=== PATIENT | female | born 1950 | race Two or more races ===

== ENCOUNTER 2021-10-12 19:48 | Inpatient (IN) | payer MEDICARE, MEDICAID ==
[~2021-10-12] VITALS: Ht 165.1 cm; Wt 86.5 kg
[2021-10-12] MEDS ORDERED: LABETALOL HCL 200 MG TAB PO ONE (21:45)
[2021-10-12 21:54] LABS: Basophils # (auto) 0.1 10 ^3/uL (0-0.2); Basophils % (auto) 1.2 % (0.0-2.0); Eosinophils # (auto) 0.1 10 ^3/uL (0-0.8); Eosinophils % (auto) 2.3 % (0.0-7.0); Hematocrit 39.4 % (36.0-46.0); Hemoglobin 13.3 g/dL (12.2-16.2); Lymphocytes % (auto) 18.5 % (10.0-50.0); Mean Corpuscular Hemoglobin 31.8 pg (28.0-32.0); Mean Corpuscular Hgb Conc. 33.7 g/dL (32.0-36.0); Mean Corpuscular Volume 94.2 fL (80.0-100.0); Monocytes # (auto) 0.4 10 ^3/uL (0-1.3); Monocytes % (auto) 7.6 % (0.0-12.0); Neutrophils # (auto) 3.9 10 ^3/uL (1.6-8.6); Neutrophils % (auto) 70.4 % (37.0-80.0); Nucleated Red Blood Cells % 0.1 %; Red Blood Cells 4.19 10^6/uL (4.0-5.20); Red Cell Distribution Width 14.7 % (11.8-14.3); White Blood Cell 5.6 10^3/uL (4.4-10.8)
[2021-10-12 22:11] LABS: Albumin 3.7 g/dL (3.4-5.0); Calcium 9.2 mg/dL (8.5-10.1); Potassium 3.6 mmol/L (3.5-5.1)
[2021-10-12 22:15] LABS: BUN/Creatinine Ratio 26.7; Bilirubin, Total 0.4 mg/dL (0.2-1.0); Total Protein 7.8 g/dL (6.4-8.2)
[2021-10-13 00:41] LABS: Urine Bacteria MANY /hpf (None Seen); Urine Blood Negative /uL (Negative); Urine Mucus FEW (None Seen); Urine Specific Gravity 1.029 (1.001-1.035); Urine WBC 13 /hpf (0 - 5)
[2021-10-13] MEDS ORDERED: HEPARIN DRIP/D5W 100UNITS/ML 250 ML IV SCH (01:45)
[2021-10-13] MEDS ORDERED: HEPARIN SODIUM (PORCINE) 5000 UNITS/ML 1ML VIAL IV ONE (01:45)
[2021-10-13] MEDS ORDERED: CLOPIDOGREL 300 MG TAB PO ONE (01:45)
[2021-10-13] MEDS ORDERED: cefTRIAXone 1GM/50ML D5W 50 ML IV ONE (01:45)
[2021-10-13] MEDS ORDERED: NITROGLYCERIN 0.4 MG SL TAB SL PRN (02:30)
[2021-10-13] MEDS ORDERED: ONDANSETRON HCL 4 MG/2 ML VIAL IV PRN (02:30)
[2021-10-13] MEDS ORDERED: DEXTROSE (50%) 50ML SYRG IV PRN (02:30)
[2021-10-13] MEDS ORDERED: MORPHINE SULFATE INJ 2 MG/ml SYRG IV PRN (02:30)
[2021-10-13] MEDS ORDERED: ENOXAPARIN SOD 100 MG/1 ML SYRINGE SC ONE (02:45)
[2021-10-13 03:09] LABS: Magnesium 2.2 mg/dL (1.6-2.6)
[2021-10-13] MEDS: ACCU-CHEK COMFORT CURVE STRIP VI SCH ×3 (06:09→17:53)
[2021-10-13] MEDS: SODIUM CHLOR 0.9% PF (SALINE LOCK) 10ML VIAL/SYR IV SCH ×3 (06:10→21:55)
[2021-10-13] MEDS: InsuLIN REG 1unit/0.01ml Soln (100units/ml) SC SCH ×3 (06:10→17:53)
[2021-10-13] MEDS: cefTRIAXone 1GM/50ML D5W 50 ML IV SCH (09:41)
[2021-10-13] MEDS ORDERED: PANTOPRAZOLE 40 MG TAB PO SCH (10:00)
[2021-10-13] MEDS ORDERED: ASPirin 81 mg TAB PO SCH (10:00)
[2021-10-13] MEDS: METOPROLOL TARTRATE 25 MG TAB PO SCH ×2 (10:01→22:02)
[2021-10-13] MEDS ORDERED: AMIODARONE HCL 200 MG TAB PO ONE ×2 (10:15→13:15)
[2021-10-13 10:48] LABS: BUN/Creatinine Ratio 31.9; Calcium 8.8 mg/dL (8.5-10.1); Magnesium 2.3 mg/dL (1.6-2.6); Potassium 4.9 mmol/L (3.5-5.1)
[2021-10-13] MEDS: ATORVASTATIN 20 MG TAB PO SCH (22:00)
[2021-10-13] MEDS ORDERED: APIXABAN 5 MG TAB PO SCH (22:00)
[2021-10-13] MEDS: AMIODARONE HCL 200 MG TAB PO SCH (22:01)
[2021-10-13] MEDS: SACUBITRIL-VALSARTAN 24mg/26mg TAB PO SCH (22:01)
[2021-10-14] MEDS: ACCU-CHEK COMFORT CURVE STRIP VI SCH ×4 (00:01→18:20)
[2021-10-14] MEDS: InsuLIN REG 1unit/0.01ml Soln (100units/ml) SC SCH ×4 (00:10→18:00)
[2021-10-14] MEDS ORDERED: HYDROcodone-ACET 5/325MG TAB PO ONE (01:00)
[2021-10-14 05:00] VITALS: BP 121/64
[2021-10-14] MEDS: SODIUM CHLOR 0.9% PF (SALINE LOCK) 10ML VIAL/SYR IV SCH ×3 (06:06→21:51)
[2021-10-14] MEDS ORDERED: ATOR20TA50 PO (06:15)
[2021-10-14] MEDS ORDERED: SACU1TAB7 PO (06:15)
[2021-10-14] MEDS ORDERED: POTA10TA51 PO (06:15)
[2021-10-14] MEDS ORDERED: METO25TA5 PO (06:15)
[2021-10-14] MEDS ORDERED: APIX5TAB PO (06:15)
[2021-10-14] MEDS ORDERED: DIGO50SO2 PO (06:15)
[2021-10-14] MEDS ORDERED: CLOP75TA28 PO (06:15)
[2021-10-14] MEDS ORDERED: FURO1TAB33 PO (06:15)
[2021-10-14 07:10] LABS: Basophils # (auto) 0 10 ^3/uL (0-0.2); Basophils % (auto) 0.5 % (0.0-2.0); Eosinophils # (auto) 0.1 10 ^3/uL (0-0.8); Eosinophils % (auto) 3.3 % (0.0-7.0); Hematocrit 34.7 % (36.0-46.0); Hemoglobin 11.9 g/dL (12.2-16.2); Lymphocytes # (auto) 0.8 10 ^3/uL (0.4-5.4); Lymphocytes % (auto) 19.2 % (10.0-50.0); Mean Corpuscular Hemoglobin 32.1 pg (28.0-32.0); Mean Corpuscular Hgb Conc. 34.3 g/dL (32.0-36.0); Mean Corpuscular Volume 93.4 fL (80.0-100.0); Monocytes # (auto) 0.4 10 ^3/uL (0-1.3); Monocytes % (auto) 9.7 % (0.0-12.0); Neutrophils # (auto) 2.9 10 ^3/uL (1.6-8.6); Neutrophils % (auto) 67.3 % (37.0-80.0); Nucleated Red Blood Cells % 0.1 %; Red Blood Cells 3.72 10^6/uL (4.0-5.20); Red Cell Distribution Width 14.2 % (11.8-14.3); White Blood Cell 4.3 10^3/uL (4.4-10.8)
[2021-10-14 07:22] LABS: INR 1.06 (0.9-1.15)
[2021-10-14 07:30] LABS: Albumin 3.3 g/dL (3.4-5.0); Calcium 8.7 mg/dL (8.5-10.1); Magnesium 2.4 mg/dL (1.6-2.6); Potassium 3.9 mmol/L (3.5-5.1)
[2021-10-14 07:35] LABS: BUN/Creatinine Ratio 28.4; Bilirubin, Total 0.7 mg/dL (0.2-1.0); Total Protein 6.9 g/dL (6.4-8.2)
[2021-10-14] MEDS: SACUBITRIL-VALSARTAN 24mg/26mg TAB PO SCH ×2 (08:43→21:50)
[2021-10-14] MEDS: METOPROLOL TARTRATE 25 MG TAB PO SCH ×2 (08:43→21:51)
[2021-10-14] MEDS: AMIODARONE HCL 200 MG TAB PO SCH ×2 (08:43→21:50)
[2021-10-14] MEDS: cefTRIAXone 1GM/50ML D5W 50 ML IV SCH (08:47)
[2021-10-14 09:00] VITALS: BP 124/54
[2021-10-14] MEDS: CLOPIDOGREL BISULFATE 75 MG TAB PO SCH (10:00)
[2021-10-14 13:00] VITALS: BP 129/59
[2021-10-14 20:00] VITALS: BP 142/65
[2021-10-14] MEDS: ATORVASTATIN 20 MG TAB PO SCH (21:49)
[2021-10-14 22:00] VITALS: BP 142/65
[2021-10-15] MEDS: ACCU-CHEK COMFORT CURVE STRIP VI SCH ×4 (00:03→18:27)
[2021-10-15 05:00] VITALS: BP 136/52
[2021-10-15 05:19] LABS: Basophils # (auto) 0 10 ^3/uL (0-0.2); Basophils % (auto) 0.3 % (0.0-2.0); Eosinophils # (auto) 0.2 10 ^3/uL (0-0.8); Eosinophils % (auto) 3.5 % (0.0-7.0); Hematocrit 37.8 % (36.0-46.0); Hemoglobin 13.1 g/dL (12.2-16.2); Lymphocytes % (auto) 20.9 % (10.0-50.0); Mean Corpuscular Hemoglobin 32.3 pg (28.0-32.0); Mean Corpuscular Hgb Conc. 34.7 g/dL (32.0-36.0); Monocytes # (auto) 0.4 10 ^3/uL (0-1.3); Neutrophils % (auto) 66.3 % (37.0-80.0); Nucleated Red Blood Cells % 0.1 %; Red Blood Cells 4.06 10^6/uL (4.0-5.20); Red Cell Distribution Width 14.3 % (11.8-14.3); White Blood Cell 4.6 10^3/uL (4.4-10.8)
[2021-10-15 05:32] LABS: Potassium 3.6 mmol/L (3.5-5.1)
[2021-10-15] MEDS: SODIUM CHLOR 0.9% PF (SALINE LOCK) 10ML VIAL/SYR IV SCH ×3 (05:59→22:14)
[2021-10-15] MEDS: InsuLIN REG 1unit/0.01ml Soln (100units/ml) SC SCH ×4 (06:00→18:36)
[2021-10-15] MEDS: cefTRIAXone 1GM/50ML D5W 50 ML IV SCH (08:45)
[2021-10-15 09:00] VITALS: BP 135/44
[2021-10-15] MEDS: CLOPIDOGREL BISULFATE 75 MG TAB PO SCH (09:12)
[2021-10-15] MEDS: METOPROLOL TARTRATE 25 MG TAB PO SCH ×2 (09:12→22:00)
[2021-10-15] MEDS: SACUBITRIL-VALSARTAN 24mg/26mg TAB PO SCH ×2 (09:31→22:12)
[2021-10-15] MEDS: AMIODARONE HCL 200 MG TAB PO SCH ×2 (09:31→22:12)
[2021-10-15 12:44] VITALS: BP 127/72
[2021-10-15 16:49] VITALS: BP 118/70
[2021-10-15 22:00] VITALS: BP 140/62
[2021-10-15] MEDS: ATORVASTATIN 20 MG TAB PO SCH (22:12)
[2021-10-16] VITALS (9 sets, daily range): BP systolic 130–147; BP diastolic 58–73
[2021-10-16] MEDS: ACCU-CHEK COMFORT CURVE STRIP VI SCH ×4 (00:37→17:22)
[2021-10-16 05:19] LABS: Basophils # (auto) 0 10 ^3/uL (0-0.2); Basophils % (auto) 0.5 % (0.0-2.0); Eosinophils # (auto) 0.1 10 ^3/uL (0-0.8); Eosinophils % (auto) 2.9 % (0.0-7.0); Hematocrit 39.1 % (36.0-46.0); Hemoglobin 13.4 g/dL (12.2-16.2); Lymphocytes # (auto) 0.9 10 ^3/uL (0.4-5.4); Lymphocytes % (auto) 20.8 % (10.0-50.0); Mean Corpuscular Hgb Conc. 34.3 g/dL (32.0-36.0); Mean Corpuscular Volume 93.4 fL (80.0-100.0); Monocytes # (auto) 0.5 10 ^3/uL (0-1.3); Monocytes % (auto) 10.5 % (0.0-12.0); Neutrophils % (auto) 65.3 % (37.0-80.0); Nucleated Red Blood Cells % 0.1 %; Red Blood Cells 4.19 10^6/uL (4.0-5.20); Red Cell Distribution Width 14.5 % (11.8-14.3); White Blood Cell 4.5 10^3/uL (4.4-10.8)
[2021-10-16 05:37] LABS: BUN/Creatinine Ratio 23.4; Calcium 9.1 mg/dL (8.5-10.1); Potassium 3.7 mmol/L (3.5-5.1)
[2021-10-16 05:38] LABS: INR 1.11 (0.9-1.15); Partial Thromboplastin Time 26.2 sec (23.6-33.0)
[2021-10-16] MEDS: SODIUM CHLOR 0.9% PF (SALINE LOCK) 10ML VIAL/SYR IV SCH ×3 (05:41→22:07)
[2021-10-16] MEDS: InsuLIN REG 1unit/0.01ml Soln (100units/ml) SC SCH ×4 (05:42→17:23)
[2021-10-16] MEDS: SACUBITRIL-VALSARTAN 24mg/26mg TAB PO SCH ×2 (10:00→22:08)
[2021-10-16] MEDS: AMIODARONE HCL 200 MG TAB PO SCH ×2 (10:00→22:08)
[2021-10-16] MEDS: METOPROLOL TARTRATE 25 MG TAB PO SCH ×2 (10:00→22:09)
[2021-10-16] MEDS: CLOPIDOGREL BISULFATE 75 MG TAB PO SCH (10:00)
[2021-10-16] MEDS ORDERED: POTASSIUM CHL 20 Meq TABLET PO ONE (10:39)
[2021-10-16] MEDS ORDERED: MIDAZOLAM HCL 2MG/2ML 2ml VIAL (1mg/ml) ONE (12:02)
[2021-10-16] MEDS ORDERED: fentaNYL CITRATE 100 MCG/2 ML VL ONE (12:02)
[2021-10-16] MEDS ORDERED: VANCOMYCIN 1GM/250ML 250 ML IV ONE (12:02)
[2021-10-16] MEDS ORDERED: VANCOMYCIN HCL 1000 MG VL ONE (12:02)
[2021-10-16] MEDS ORDERED: LIDOCAINE 2%HCL (LOCAL ANESTH.) INJ 10ml MDV ONE ×2 (12:11→12:28)
[2021-10-16] MEDS ORDERED: HYDROmorphone HCL 2 MG/ML VL/or syr ONE (12:24)
[2021-10-16] MEDS: cefTRIAXone 1GM/50ML D5W 50 ML IV SCH (15:02)
[2021-10-16] MEDS: VANCOMYCIN 1GM/250ML 250 ML IV SCH (22:07)
[2021-10-16] MEDS: ATORVASTATIN 20 MG TAB PO SCH (22:08)
[2021-10-17] MEDS ORDERED: DOCUSATE SOD 100 MG CAP PO PRN (00:30)
[2021-10-17] MEDS: ACCU-CHEK COMFORT CURVE STRIP VI SCH ×3 (00:40→11:40)
[2021-10-17] MEDS: HYDROcodone-ACET 5/325MG TAB PO PRN ×2 (00:40→06:39)
[2021-10-17] MEDS: InsuLIN REG 1unit/0.01ml Soln (100units/ml) SC SCH ×3 (00:41→12:34)
[2021-10-17 05:27] VITALS: BP 137/76
[2021-10-17 05:35] LABS: Basophils # (auto) 0 10 ^3/uL (0-0.2); Basophils % (auto) 0.5 % (0.0-2.0); Eosinophils # (auto) 0.2 10 ^3/uL (0-0.8); Eosinophils % (auto) 2.7 % (0.0-7.0); Hematocrit 37.7 % (36.0-46.0); Lymphocytes # (auto) 1.1 10 ^3/uL (0.4-5.4); Lymphocytes % (auto) 19.1 % (10.0-50.0); Mean Corpuscular Hemoglobin 32.2 pg (28.0-32.0); Mean Corpuscular Hgb Conc. 34.4 g/dL (32.0-36.0); Mean Corpuscular Volume 93.3 fL (80.0-100.0); Monocytes # (auto) 0.6 10 ^3/uL (0-1.3); Monocytes % (auto) 9.4 % (0.0-12.0); Neutrophils % (auto) 68.3 % (37.0-80.0); Nucleated Red Blood Cells % 0.1 %; Red Blood Cells 4.04 10^6/uL (4.0-5.20); Red Cell Distribution Width 14.6 % (11.8-14.3); White Blood Cell 5.9 10^3/uL (4.4-10.8)
[2021-10-17] MEDS: SODIUM CHLOR 0.9% PF (SALINE LOCK) 10ML VIAL/SYR IV SCH ×2 (05:46→14:00)
[2021-10-17 05:58] LABS: Potassium 3.6 mmol/L (3.5-5.1)
[2021-10-17 06:07] LABS: BUN/Creatinine Ratio 24.7; Calcium 8.8 mg/dL (8.5-10.1)
[2021-10-17 07:30] VITALS: BP 135/67
[2021-10-17 09:00] VITALS: BP_SYST 135
[2021-10-17] MEDS: METOPROLOL TARTRATE 25 MG TAB PO SCH (09:21)
[2021-10-17] MEDS: cefTRIAXone 1GM/50ML D5W 50 ML IV SCH (09:21)
[2021-10-17] MEDS: AMIODARONE HCL 200 MG TAB PO SCH (09:21)
[2021-10-17] MEDS: SACUBITRIL-VALSARTAN 24mg/26mg TAB PO SCH (09:21)
[2021-10-17] MEDS: VANCOMYCIN 1GM/250ML 250 ML IV SCH (11:40)
[2021-10-17 12:50] VITALS: BP 134/64
[2021-10-17] MEDS ORDERED: AMIO200T33 PO (13:03)
[2021-10-17 14:45] VITALS: BP 134/64
[2021-10-23] MEDS ORDERED: CLOPIDOGREL BISULFATE 75 MG TAB PO SCH
== END 2021-10-17 15:42 | disposition home health service (06) | DRG 177 ==
LOC: EDBD 19:48 → ER 19:53 → TELE 10-13 02:29 → TELE-WESTW 10-13 23:27
PROVIDERS: ADMIT Nurse Practitioner; ATTEND Internal Medicine
PROC: 02WA3MZ Revision of Cardiac Lead in Heart, Percutaneous Approach (ICD-10-PCS; principal; 2021-10-16)
DX: T82.190A Other mechanical complication of cardiac electrode, initial encounter (principal); N17.0 Acute kidney failure with tubular necrosis; I21.A1 Myocardial infarction type 2; I50.22 Chronic systolic (congestive) heart failure; I11.0 Hypertensive heart disease with heart failure; D69.6 Thrombocytopenia, unspecified; I42.0 Dilated cardiomyopathy; E11.9 Type 2 diabetes mellitus without complications; I48.0 Paroxysmal atrial fibrillation; E78.5 Hyperlipidemia, unspecified; N39.0 Urinary tract infection, site not specified; E66.01 Morbid (severe) obesity due to excess calories; K21.9 Gastro-esophageal reflux disease without esophagitis; Z20.822 Contact with and (suspected) exposure to COVID-19; Y83.8 Other surgical procedures as the cause of abnormal reaction of the patient, or of later complication, without mention of misadventure at the time of the procedure; I25.10 Atherosclerotic heart disease of native coronary artery without angina pectoris; I47.1 Supraventricular tachycardia; J44.9 Chronic obstructive pulmonary disease, unspecified; Z95.1 Presence of aortocoronary bypass graft; Z95.2 Presence of prosthetic heart valve; Z95.810 Presence of automatic (implantable) cardiac defibrillator; Z98.61 Coronary angioplasty status; Y92.89 Other specified places as the place of occurrence of the external cause; Z68.30 Body mass index [BMI] 30.0-30.9, adult; Z79.4 Long term (current) use of insulin
CPT/HCPCS: 33215; 36415; 71045; 80048; 80053; 80061; 81001; 82962; 83036; 83735; 83880; 84132; 84443; 84484; 85025; 85610; 85730; 86850; 86900; 86901; 87086; 93005; 93306; 96365; 96366; 96372; 96374; 96376; 99152; 99153; 99291; G0378; J0696; J1815; J2001; J2250

== ENCOUNTER 2022-07-16 02:03 | Emergency (ER) | payer MEDICARE, MEDICAID ==
[~2022-07-16] VITALS: Ht 167.6 cm; Wt 81.8 kg
[~2022-07-16 02:03] MED LIST: APIX5TAB PO; ATOR20TA50 PO; CLOP75TA28 PO; FURO1TAB33 PO; METO25TA5 PO; POTA10TA51 PO; SACU1TAB7 PO
[2022-07-16 02:42] LABS: Basophils # (auto) 0.1 10 ^3/uL (0-0.2); Basophils % (auto) 1.3 % (0.0-2.0); Eosinophils # (auto) 0.1 10 ^3/uL (0-0.8); Eosinophils % (auto) 2.3 % (0.0-7.0); Hematocrit 37.9 % (36.0-46.0); Hemoglobin 13.1 g/dL (12.2-16.2); Lymphocytes # (auto) 0.8 10 ^3/uL (0.4-5.4); Lymphocytes % (auto) 16.2 % (10.0-50.0); Mean Corpuscular Hemoglobin 32.3 pg (28.0-32.0); Mean Corpuscular Hgb Conc. 34.7 g/dL (32.0-36.0); Mean Corpuscular Volume 93.3 fL (80.0-100.0); Monocytes # (auto) 0.4 10 ^3/uL (0-1.3); Monocytes % (auto) 7.9 % (0.0-12.0); Neutrophils # (auto) 3.6 10 ^3/uL (1.6-8.6); Neutrophils % (auto) 72.3 % (37.0-80.0); Nucleated Red Blood Cells % 0.1 %; Red Blood Cells 4.06 10^6/uL (4.0-5.20)
[2022-07-16 02:57] LABS: Albumin 3.7 g/dL (3.4-5.0); BUN/Creatinine Ratio 19.1; Calcium 8.6 mg/dL (8.5-10.1); Potassium 3.8 mmol/L (3.5-5.1)
[2022-07-16 03:00] LABS: Bilirubin, Total 0.5 mg/dL (0.2-1.0); Total Protein 6.9 g/dL (6.4-8.2)
[2022-07-16 03:42] LABS: Urine Bacteria FEW /hpf (None Seen); Urine Blood Negative /uL (Negative); Urine WBC 57 /hpf (0 - 5)
[2022-07-16] MEDS ORDERED: cefTRIAXone 1GM/50ML D5W 50 ML IV ONE (05:15)
[2022-07-16] MEDS ORDERED: CEPH-322 PO (05:34)
[2022-07-16 06:01] VITALS: BP 119/59
== END 2022-07-16 06:00 | disposition home or self-care (01) ==
LOC: ER 02:03 → EDBD 02:03 → ER 06:00
DX: N39.0 Urinary tract infection, site not specified (principal); E11.22 Type 2 diabetes mellitus with diabetic chronic kidney disease; N18.9 Chronic kidney disease, unspecified; R42 Dizziness and giddiness; J44.9 Chronic obstructive pulmonary disease, unspecified; I10 Essential (primary) hypertension; Z87.891 Personal history of nicotine dependence; Z95.0 Presence of cardiac pacemaker
CPT/HCPCS: 36415; 70450; 71045; 80053; 81001; 83735; 83880; 84484; 85025; 93005; 96365; 99285; J0696